=== PATIENT | female | born 1995 | race Caucasian/White ===

== ENCOUNTER 2020-04-06 16:53 | Emergency (ER) | payer OTHER, SELFPAY ==
--- NOTE | ~2020-04-06 | XR_ITS ---
EXAMINATION: XR lumbar spine 2-3V EXAM DATE: 04/06/2020 17:30 INDICATION: low back pain x 4 months, no known injury. TECHNIQUE: Lumber spine frontal, lateral, lateral L5-S1 projections for interpretation. There is no prior study for comparison. FINDINGS: There is mild lumbar levoscoliosis. There is mild to moderate disc disease at T10-11 and T 11-12. Mild anterior wedging of the T11 vertebral body, likely old compression fracture. Minimal lumb ar disc disease. Mild lumbar facet arthropathy. The vertebral bodies are aligned in the AP dimension. Paraspinal soft tissue is unremarkable. IMPRESSION: 1. Mild chronic compression of T11. 2. Mild spondylosis. Reviewed, dictated and finalized at location A.
--- NOTE | 2020-04-06 17:02 | ED_ITS ---
HPI - Back Pain/Injury General Chief Complaint: Back Pain/Injury Stated Complaint: back pain Source: patient and RN notes reviewed Mode of arrival: ambulatory Limitations: no limitations History of Present Illness HPI Narrative: Patient states that she has been having back pain for approximately 4 months. She recently thought there might be some connection with her 2nd spinal anesthesia she had for delivery. She did not have any back pain for 6 months after delivery. I told her I did not think they are associated. She went to see her primary care physician and she had a kidney ultrasound performed that was normal. Her mother had kidney cancer and that is why she was screened. She denies any radiation. She denies any injury that she recalls or any specific event. MD elicited complaint: back pain Onset (ago): month(s) (4) Timing: constant Severity: moderate Similar Symptoms Previously: Yes Quality: dull, aching and spasming Location: lumbar spine Radiation: none Exacerbating factors: movement Relieving factors: none Context: other ( no particular event or trauma) Associated symptoms: denies other symptoms Related Data Home Medications Medication Instructions Recorded Confirmed No Home Medications 04/06/20 04/06/20 Allergies Allergy/AdvReac Type Severity Reaction Status Date / Time No Known Allergies Allergy Verified 04/06/20 17:06 Review of Systems 2 Constitutional: Constitutional: Denies chills and Denies fever(s) Gastrointestinal: Gastrointestinal: Denies abdominal pain, Denies constipation, Denies diarrhea, Denies nausea and Denies vomiting Genitourinary: Genitourinary: Reports no additional female genitourinary complaints, Denies nocturia, Denies dysuria and Denies flank pain Musculoskeletal: Musculoskeletal: Reports as per HPI Neurologic: Reports system reviewed and no additional complaints, except as documented, Denies focal weakness and Denies numbness PMFSH Past Medical History Medical History (Updated 04/06/20 @ 17:49 by Jin Hennessy MD) Obesity Surgical History Surgical History (Updated 04/06/20 @ 17:17 by Jin Hennessy MD) Delivery by section History of bilateral tubal ligation Social History Social History (Updated 04/06/20 @ 17:17 by Jin Hennessy MD) Smoking packs per day: 0.5 Smoking cigarettes per day: 10.0 Smoking status: Current every day smoker Tobacco type: cigarettes Alcohol intake: never Substance use: never Discharge Plan Discharge Clinical Impression: Low back pain Qualifiers: Chronicity: chronic Back pain laterality: bilateral Sciatica presence: without sciatica Qualified Code(s): M54.5 - Low back pain Patient Disposition: Home, Self-Care Condition: Stable Instructions: Back Pain (ED), Lower Back Exercises (ED) Additional Instructions: use Tylenol and or Motrin as needed [id number] for pain. Follow-up with your primary care physician for further evaluation. Prescriptions: No Action No Home Medications RF: 0 Follow-up/Referrals: [place],TEJAS Yap [Primary Care Provider] - Time of Disposition: 17:49
[2020-04-06 17:05] VITALS: BP 156/83; PULSE 100; RESP 16; TEMP 36.9; O2SAT 98
[2020-04-06 17:14] LABS: Add Urine Microscopic? YES; Appearance Urine Clear (Clear); Bilirubin Urine Negative (Negative); Blood Urine Negative (Negative); Color Urine Yellow (Yellow); Glucose Urine UA Negative (Negative); Ketones Urine Negative (Negative); Leukocyte Esterase Ur Negative LEU/UL (Negative); Nitrate Urine Negative (Negative); Protein Urine Negative (Negative); Specific Grav Ur 1.025 (1.010-1.020)
[2020-04-06 17:19] LABS: Bacteria Urine Trace /hpf; Mucus Urine Few /lpf; RBC Urine 0-2 /hpf (0-2); Squamous Epithelial Cell Urine Few /hpf (Few); WBC Urine 0-3 /hpf (0-3)
[2020-04-06] MEDS: KETOROLAC (*BKC) 60 MG/2 ML VIAL IM (17:30)
[2020-04-06 17:50] VITALS: RESP 17
== END 2020-04-06 17:52 | disposition home or self-care (01) ==
PROVIDERS: Emergency Provider Emergency Medicine; PCP Physician Assistant
DX: M54.5 Low back pain (principal)
CPT/HCPCS: 72100; 81001; 96372; 99282; 99283; J1885

== ENCOUNTER 2022-04-16 22:11 | Emergency (ER) | payer OTHER, SELFPAY ==
--- NOTE | ~2022-04-16 | XR_ITS ---
XR ankle RT min 3V 04/16/2022 23:26 INDICATION: Right ankle pain PROCEDURE: 4 views right ankle COMPARISON: No prior studies for comparison. FINDINGS: Fracture, dislocation or subluxation is not identified. Ankle mortise intact. The soft tiss ues appear within normal limits. No foreign bodies are identified. IMPRESSION: 1: NO ACUTE BONE OR JOINT ABNORMALITY IDENTIFIED. Reviewed, dictated and finalized at location A.
[2022-04-16 22:20] VITALS: BP 141/77; PULSE 93; RESP 16; TEMP 36.4; O2SAT 100
[2022-04-16] MEDS: IBUPROFEN 400 MG TABLET 800 MG PO (22:50)
--- NOTE | 2022-04-16 23:02 | PC.NURSE ---
Pt resting c ice in place, awaiting Xray, Report to Sophie RN
--- NOTE | 2022-04-16 23:06 | ED.LOWEXIN ---
HPI - Extremity Injury (Lower) General Chief Complaint: Extremity Injury, Lower Stated Complaint: R ankle injury at work Time Seen by Provider: 04/16/22 22:15 Source: patient and RN notes reviewed Mode of arrival: ambulatory Limitations: no limitations History of Present Illness complaint: ankle injury Onset (ago): hour(s) Injury: Right: ankle Type of Injury: inversion Place: work Severity: mild Severity scale (1-10): 4 Relieving factors: rest Exacerbating factors: weight bearing and movement Context: other (twisted the right ankle) Associated symptoms: snap/pop sensation and able to partially bear weight Other symptoms: none Related Data Home Medications Medication Instructions Recorded Confirmed bupropion HCl 150 mg tablet,12 hr 150 mg PO BID 04/16/22 04/16/22 sustained-release Allergies Allergy/AdvReac Type Severity Reaction Status Date / Time No Known Allergies Allergy Verified 04/06/20 17:06 Review of Systems Review of Systems: All systems reviewed & are unremarkable except as noted in HPI and below Constitutional: Constitutional: Reports no additional constitutional complaints Eyes: Eyes: Reports no additional eye complaints ENT: Reports system reviewed and no additional complaints, except as documented Cardiovascular: Cardiovascular: Reports no additional cardiovascular complaints Respiratory: Respiratory: Reports no additional respiratory complaints Gastrointestinal: Gastrointestinal: Reports no additional gastrointestinal complaints Genitourinary: Genitourinary: Reports no additional female genitourinary complaints Musculoskeletal: Musculoskeletal: Reports no additional musculoskeletal complaints and Reports arthralgias Integumentary/Breasts: Skin/Breast: Reports system reviewed and no additional complaints, except as docu Neurologic: Reports system reviewed and no additional complaints, except as documented Psychiatric: Psychiatric: Reports no additional psychiatric complaints Endocrine: Endocrine: Reports no additional endocrine complaints Hematologic/Lymphatic: Hematologic/Lymphatic: Reports no additional hematologic/lymphatic complaints Allergic/Immunologic: Allergic/Immunologic: Reports no additional allergic/immunologic complaints PMFSH Past Medical History Medical History Ankle arthralgia Obesity Surgical History Surgical History Delivery by section History of bilateral tubal ligation Social History Social History Smoking packs per day: 0.5 Smoking cigarettes per day: 10.0 Smoking status: Current every day smoker Tobacco type: cigarettes Alcohol intake: never Substance use: never Exam Const: General: healthy appearing, no acute distress and well nourished Nutritional Appearance: well nourished Orientation/consciousness: patient oriented x3 Limitations: no limitations HENMT: Head: normal to inspection Ears: external ears normal, TM's normal bilaterally and EAC's normal Face/Nose/Sinus: Normal external nose present, Normal nares present, normal facial exam and sinuses nontender Face and sinus: normal facial exam and sinuses nontender Mouth: Yes Normal oral and palatal mucosa present and Yes moist mucous membranes Teeth and gingiva: dentition normal Throat: posterior oropharynx normal Eyes: Conjunctivae: conjunctivae normal Pupils: Equal, round and reactive pupils present EOM: EOMs intact bilaterally Neck: Neck: normal visual inspection, no lymphadenopathy and no meningeal signs Chest: Chest palpation & inspection: normal inspection of the chest Resp: Effort & Inspection: normal respiratory effort Auscultation: clear to auscultation bilaterally Cardio: Rate: regular rate Rhythm: regular rhythm GI: GI Palp: Yes Soft to palpation and No Tenderness to palpation pres
--- NOTE | 2022-04-16 23:10 | PC.NURSE ---
pt resting on stretcher, pt awaiting xray at this time. pt has call light within reach.
--- NOTE | 2022-04-16 23:19 | PC.NURSE ---
radiology at bedside for x-ray.
[2022-04-17 00:09] VITALS: BP 123/75; PULSE 82; RESP 18
== END 2022-04-17 00:09 | disposition home or self-care (01) ==
PROVIDERS: Emergency Provider Emergency Medicine; PCP Physician Assistant
DX: S93.401A Sprain of unspecified ligament of right ankle, initial encounter (principal)
CPT/HCPCS: 29515; 73610; 99283; A9270